=== PATIENT | male | born 1975 ===

== ENCOUNTER 2019-02-13 10:40 | Emergency (ER) | payer MEDICAID ==
--- NOTE | 2019-02-13 10:59 | ED ---
HPI Chest Pain - HPI Summary HPI Summary: This patient is a 44 year old M presenting to [facility] with a chief complaint of sharp non-radiating chest pains since 0600, today. Pt reports increase in pain with movement of left upper extremity and deep breaths. Pt reports the severity was originally 8/10, but currently 3/10. Pt denies SOB, nausea, vomiting, diaphoresis. Pt has PMHx of diabetes, and not PMHx of cardiac disease, HTN. Pt report FHx of cardiac diseases, as father had heart problems in his 60s. - History of Current Complaint Chief Complaint: EDChestPainROMI Time Seen by Provider: 02/13/19 10:53 Hx Obtained From: Patient Onset/Duration: Started Hours Ago - 0600, Still Present Timing: Constant Initial Severity: Severe Current Severity: Mild Pain Intensity: 3 Pain Scale Used: 0-10 Numeric Chest Pain Radiates: No Character: Sharp/Stabbing Aggravating Factor(s): Movement - of left upper extremity, Deep Breaths Alleviating Factor(s): Nothing Associated Signs and Symptoms: Positive: Other: - neg - diaphoresis. Negative: Shortness of Breath, Nausea, Vomiting - Allergy/Home Medications Allergies/Adverse Reactions: Allergies Allergy/AdvReac Type Severity Reaction Status Date / Time No Known Allergies Allergy Verified 02/13/19 11:18 PMH/Surg Hx/FS Hx/Imm Hx Endocrine/Hematology History: Reports: Hx Diabetes Cardiovascular History: Denies: Hx Hypertension Infectious Disease History: No Infectious Disease History: Denies: Traveled Outside the [place] in Last 30 Days - Family History Known Family History: Positive: Cardiac Disease - Social History Alcohol Use: Occasionally Hx Substance Use: No Substance Use Type: Reports: None Hx Tobacco Use: No Smoking Status (MU): Never Smoked Tobacco Review of Systems Negative: Skin Diaphoresis Positive: Chest Pain Negative: Shortness Of Breath Negative: Vomiting, Nausea All Other Systems Reviewed And Are Negative: Yes Physical Exam - Summary Physical Exam Summary: VITAL SIGNS: Reviewed. GENERAL: Patient is a well-developed and nourished male who is lying comfortable in the stretcher. Patient is not in any acute respiratory distress. HEAD AND FACE: No signs of trauma. No ecchymosis, hematomas or skull depressions. No sinus tenderness. EYES: PERRLA, EOMI x 2, No injected conjunctiva, no nystagmus. EARS: Hearing grossly intact. Ear canals and tympanic membranes are within normal limits. MOUTH: Oropharynx within normal limits. NECK: Supple, trachea is midline, no adenopathy, no JVD, no carotid bruit, no c- spine tenderness, neck with full ROM. CHEST: Symmetric, no tenderness at palpation, Reproducible chest pain on left side. LUNGS: Clear to auscultation bilaterally. No wheezing or crackles. CVS: Regular rate and rhythm, S1 and S2 present, no murmurs or gallops appreciated. ABDOMEN: Soft, non-tender. No signs of distention. No rebound no guarding, and no masses palpated. Bowel sounds are normal. EXTREMITIES: FROM in all major joints, no edema, no cyanosis or clubbing. NEURO: Alert and oriented x 3. No acute neurological deficits. Speech is normal and follows commands. SKIN: Dry and warm. Triage Information Reviewed: Yes Vital Signs On Initial Exam: Initial Vitals Temp Pulse Resp BP Pulse Ox 97.3 F 89 16 149/87 100 02/13/19 10:50 02/13/19 10:50 02/13/19 10:50 02/13/19 10:50 02/13/19 10:50 Vital Signs Reviewed: Yes Diagnostics - Vital Signs Vital Signs Temp Pulse Resp BP Pulse Ox 02/13/19 10:50 97.3 F 89 16 149/87 100 - Laboratory Result Diagrams: 02/13/19 10:54 02/13/19 10:54 Lab Statement: Any lab studies that have been ordered have been reviewed, and results considered in the medical decision making process. - Radiology CXR Radiology Interpretation Completed By: Radiologist Summary of Radiographic Findings: CXR reveals, per radiologist, IMPRESSION: #. No evidence for acute intrathoracic disease. ED physician has reviewed this radiology report. - EKG 1043 Cardiac Rate: NL EKG Rhythm: Sinus Rhythm Summary of EKG Findings: EKG reveals sinus rhythym 92 bpm, no ST elevations, normal axis. Re-Evaluation - Re-Evaluation First Eval Re-Evaluation Time: 14:31 Comment: Discussed results and plan of care with pt. Lung exam before discharge : CTA B/L. Good air exchange. No wheezing or crackles heard. CVS: S1 and S2 present. No murmurs appreciated. Patient is alert and oriented x 3. Patient is hemodynamically stable. Patient agreeable to discharge. Chest Pain Course/Dx - Course Course Of Treatment: This patient is a 44 year old M presenting to [facility] with a chief complaint of sharp non-radiating chest pains since 0600, today. Pt reports increase in pain with movement of left upper extremity and deep breaths. Pt reports the severity was originally 8/10, but currently 3/10. Pt denies SOB, nausea, vomiting, diaphoresis. Pt has PMHx of diabetes, and not PMHx of cardiac disease, HTN. Pt report FHx of cardiac diseases, as father had heart problems in his 60s. Chest x-ray impression: negative for acute pathology. EKG shows a normal sutures without any ST elevations. Blood work without any significant abnormality, except for hyperglycemia for which the patient was given insulin. The patients troponin is 0.00. Second troponin 4 hours apart is also 0.00. In the ED course the patient was given insulin and the patient is feeling better. Heart score is 2. The patient will be discharged home with follow-up with PCP. The patient will be given a prescription for metformin since he ran out of this medication. I discussed all the findings and test results with the patient. Patient was instructed to return to the emergency room immediately if any of the symptoms return worsens. Plan of care was discussed with the patient and understands and agrees. All questions were answered at patient satisfaction. There were no further complaints or concerns. Lung exam before discharge: CTA B/L. Good air exchange. No wheezing or crackles heard. CVS: S1 and S2 present. No murmurs appreciated. Patient is alert and oriented x 3. Patient is hemodynamically stable. Patient will be discharged home with follow up PCP in the next 2-3 days Assessment/Plan: Chest x-ray impression: negative for acute pathology. EKG shows a normal sutures without any ST elevations. Blood work without any significant abnormality, except for hyperglycemia for which the patient was given insulin. The patients troponin is 0.00. Second troponin 4 hours apart is also 0.00. In the ED course the patient was given insulin and the patient is feeling better. Heart score is 2. The patient will be discharged home with follow-up with PCP. The patient will be given a prescription for metformin since he ran out of this medication. I discussed all the findings and test results with the patient. Patient was instructed to return to the emergency room immediately if any of the symptoms return worsens. Plan of care was discussed with the patient and understands and agrees. All questions were answered at patient satisfaction. There were no further complaints or concerns. Lung exam before discharge: CTA B/L. Good air exchange. No wheezing or crackles heard. CVS: S1 and S2 present. No murmurs appreciated. Patient is alert and oriented x 3. Patient is hemodynamically stable. Patient will be discharged home with follow up PCP in the next 2-3 days - Chest Pain Differential Diagnosis/HQI/PQRI: Acute FL, ACS, Angina, CHF, Chest Wall, GI Disease, Pulmonary Edema - Diagnoses Provider Diagnoses: Chest pain, atypical, Hyperglycemia Discharge - Sign-Out/Discharge Documenting (check all that apply): Patient Departure - Discharge Patient Received Moderate/Deep Sedation with Procedure: No - Discharge Plan Condition: Stable Disposition: HOME Prescriptions: metFORMIN* [Glucophage 500 MG TAB *] 500 mg PO BID #20 tab Patient Education Materials: Chest Pain (ED), Diabetic Hyperglycemia (ED) Referrals: Care [facility] [Outside] - 3 Days Additional Instructions: Follow up with your primary care provider within three days RETURN TO THE ED FOR ANY WORSENING OR NEW SYMPTOMS. - Billing Disposition and Condition Condition: STABLE Disposition: Home - Attestation Statements Document Initiated by Murrayibshane: Yes Documenting Scribe: Bailey Viera Provider For Whom Enrike is Documenting (Include Credential): Dr. Christopher Connell Attestation: Bailey Lainez scribed for Dr. Christopher Brennan on 02/13/19 at 2144. Scribe Documentation Reviewed: Yes Provider Attestation: The documentation as recorded by the Bailey connell accurately reflects the service I personally performed and the decisions made by , Dr. Christopher Brennan Status of Scribe Document: Viewed
[2019-02-13 11:14] LABS: ABS Eosinophils 0.1 10^3/ul (0-0.6); ABS Lymphocytes 2.3 10^3/ul (1.0-4.8); ABS Monocytes 0.5 10^3/ul (0-0.8); ABS Neutrophils 3.8 10^3/ul (1.5-7.7); Eosinophil % 0.9 %; Hematocrit 46 % (42-52); Hemoglobin 16.2 g/dL (14.0-18.0); Lymphocyte % 34.2 %; Mean Corpuscular HGB Conc 36 g/dL (31-36); Mean Corpuscular Hemoglobin 31 pg (27-31); Mean Corpuscular Volume 87 fL (80-94); Mean Platelet Volume 8.1 fL (7.4-10.4); Nucleated Red Blood Cells % 0.2; Platelet Count 335 10^3/uL (150-450); Red Blood Count 5.21 10^6 /uL (4.18-5.48); Red Cell Distribution Width 12 % (10-15); White Blood Count 6.6 10^3/uL (3.5-10.8)
[2019-02-13 11:19] LABS: Activated Partial Thrombo Time 31.7 seconds (26.0-38.0); INR 0.97 (0.82-1.09)
[2019-02-13 11:31] LABS: CKMB ng/mL 2.1 ng/mL (0.6-6.3)
[2019-02-13 11:38] LABS: Albumin 4.6 g/dL (3.2-5.2); Albumin/Globulin Ratio 1.6 (1-3); BUN/Creatinine Ratio 15.5 (8-20); Calcium 9.7 mg/dL (8.6-10.3); EGFR African American 119.6 (>60); EGFR Non-African American 98.8 (>60); Globulin 2.8 g/dL (2-4); Total Bilirubin 0.6 mg/dL (0.2-1.0); Total Protein 7.4 g/dL (6.4-8.9)
[2019-02-13] MEDS ORDERED: Ketorolac INJ* 30 MG/ML 1 ML VIAL IV PUSH ONE (11:45)
[2019-02-13 12:00] LABS: TSH (Thyroid Stimulating Horm) 3.03 mcIU/mL (0.34-5.60)
[2019-02-13 12:10] LABS: Magnesium 1.8 mg/dL (1.9-2.7); Potassium 4.5 mmol/L (3.5-5.0)
[2019-02-13] MEDS ORDERED: Magnesium Oxide TAB* 400 MG PO ONE (13:10)
[2019-02-13] MEDS ORDERED: Insulin REGULAR(*) 1 UNITS UNIT IV PUSH ONE (13:18)
[2019-02-13] MEDS ORDERED: metFORMIN* 500 MG TAB PO ONE (14:26)
[2019-02-13 14:55] VITALS: BP 150/93
== END 2019-02-13 15:01 | disposition home or self-care (01) ==
LOC: ED 10:40
DX: R07.89 Other chest pain (principal); E11.65 Type 2 diabetes mellitus with hyperglycemia
CPT/HCPCS: 36415; 71045; 80053; 82550; 82553; 83735; 83880; 84443; 84484; 85025; 85610; 85730; 93005; 96374; 96375; 99283; A9270-GY; J1815; J1885